=== PATIENT | male | born 1995 | race Two or more races ===

== ENCOUNTER 2021-03-05 10:33 | Emergency (ER) | payer SELFPAY ==
[~2021-03-05] VITALS: Ht 172.7 cm; Wt 81.0 kg
--- NOTE | 2021-03-05 10:52 | NUR ---
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 pt denies injury/trauma or fall. pt is a&o, resps even and unlabored, nadn. all extremity strength equal, pupils equal, round and reactive. speech clear. parents at bedside. bp and spo2 monitors in place. awaiting MD and orders.
--- NOTE | 2021-03-05 10:57 | NUR ---
HARPREET MCHUGH AT BEDSIDE FOR INITIAL ASSESSMENT.
[2021-03-05] MEDS ORDERED: ACETAMINOPHEN 500 MG TABLET PO ONE (11:00)
[2021-03-05] MEDS ORDERED: LORazepam 1MG TABLET PO ONE (11:00)
[2021-03-05] MEDS ORDERED: LORazepam 1MG TABLET ONE (11:23)
[2021-03-05] MEDS ORDERED: ACETAMINOPHEN 500 MG TABLET ONE (11:23)
--- NOTE | 2021-03-05 11:32 | NUR ---
PT MEDICATED PER ORDER, TOLERATED WELL. PT A&O, RESPS EVEN AND UNLABORED, VSS, NADN. WARM BLANKET PROVIDED, CALL LIGHT IN REACH.
[2021-03-05 11:33] LABS: ALBUMIN 3.9 g/dL (3.4-5.0); ANION GAP 13 mmol/L (5-15); CALCIUM 9.1 mg/dL (8.5-10.1); CHLORIDE 97 mmol/L (98-107); CREATININE 1.24 mg/dL (0.7-1.3)
[2021-03-05 11:38] LABS: BASOPHILS % (AUTO) 0 % (0-1); EOSINOPHILS % (AUTO) 0 % (1-7); LYMPHOCYTES % (AUTO) 15 % (22-44); MEAN CORPUSCULAR HEMOGLOBIN 29.6 pg (27.5-34.5); MEAN CORPUSCULAR HGB CONC 35.6 g/dL (33.2-36.2); MEAN PLATELET VOLUME 9.1 fL (7.4-10.4); MONOCYTES % (AUTO) 10 % (2-9); NEUTROPHILS % (AUTO) 75 % (42-75); PLATELET COUNT 189 x10^3/uL (130-400); RED BLOOD COUNT 5.54 x10^6/uL (4.38-5.82)
--- NOTE | 2021-03-05 11:48 | NUR ---
pt states he is feeling better after medication, states pain decrease from 7/10 to 5/10. pt resting in bed, vss, resps even and unlabored, nadn. parents at bedside, call light in reach. awaiting lab/xr results and dispo.
--- NOTE | 2021-03-05 12:39 | NUR ---
preceptor RN note: urine collected. all monitors in place. pt is nsr on cardiac catheterization technologist with no ectopy. pt a&o, resps even and unlabored, no complaint. awaiting ua results and dispo.
[2021-03-05 12:50] LABS: MICROSCOPIC NOT IND
[2021-03-05] MEDS ORDERED: POTASSIUM CHLORIDE 20 MEQ TAB.ER.PRT PO ONE (14:00)
[2021-03-05] MEDS ORDERED: POTASSIUM CHLORIDE 20 MEQ TAB.ER.PRT ONE (14:26)
[2021-03-05 14:29] VITALS: BP 121/65
--- NOTE | 2021-03-05 14:30 | NUR ---
pt resting in bed, medicated per order, tolerated well. vss, resps even and unlabored, pt a&o, nadn.
--- NOTE | 2021-03-05 14:41 | NUR ---
pt educated on discharge instructions, prescription, follow-up, and return criteria, verbalized understanding. pt a&o, resps even and unlabored, vss, nadn. ambulatory to discharge with steady gait acoompanied by mom.
== END 2021-03-05 14:43 | disposition home or self-care (01) ==
LOC: ED 11:04
DX: R50.9 Fever, unspecified (principal); J02.8 Acute pharyngitis due to other specified organisms; B97.89 Other viral agents as the cause of diseases classified elsewhere; E87.6 Hypokalemia
CPT/HCPCS: 36415; 71045; 80048; 81003; 82040; 85025; 87081; 87880; 99285